=== PATIENT | female | born 1960 | race Two or more races ===

== ENCOUNTER 2024-10-28 12:06 | Inpatient (IN) | payer OTHER ==
[~2024-10-28] VITALS: Ht 165.1 cm; Wt 49.9 kg
[2024-10-28] MEDS ORDERED: HIERRO (12:30)
[2024-10-28] MEDS ORDERED: AMIPRIL (12:30)
--- NOTE | 2024-10-28 12:33 | NUR ---
PTE REFEIFE ANEMIA LA HEMOGLOBINA EN 7. SEMLELTOMA S/V Y SE UBICA EN ISOLACION POR CANCER DE COLON SE LE MYKE S/V Y SE UBICA EN CAMA.
[2024-10-28] MEDS ORDERED: 0.9 % SODIUM CHLORIDE 1,000 ML IV SCH (13:15)
--- NOTE | 2024-10-28 14:02 | NUR ---
SE EDUCA SOBRE [place] MEDICO, ESTA REFIERE ENTENDER. SE EXTRAEN MUESTRAS DE LABORATORIO Y SE ADMINISTRAN MEDICAMENTOS NIKKY ORDEN MEDICA. PENDIENTE U/A.
[2024-10-28 14:09] LABS: BASO % 0.2 % (0.1-1.2); EOS # 0.01 (0.04-0.54); EOS % 0.2 % (0.7-7.0); LYMPH # 1.04 (1.18-3.74); LYMPH % 24.6 % (19.3-53.1); MEAN PLATELET VOLUME 8.40 fl (9.4-12.4); MONO # 0.39 (0.24-0.82); MONO % 9.2 % (4.7-12.5); NEUT # 2.42 (1.56-6.13); NEUT % 57.3 % (34.0-71.1); RED CELL DISTRIBUTION WIDTH 17.6 % (11.6-14.4)
[2024-10-28 14:29] LABS: INR 1.05
[2024-10-28 14:37] LABS: ALT/SGPT 14.0 U/L (12-78); AST/SGOT 17.0 U/L (15-37); BILIRUBIN TOTAL 0.23 mg/dL (0.3-1.2); BUN CREA RATIO 11.0 (7.0-25.0); CREATININE SERUM 1.01 mg/dL (0.55-1.02); GFR 54.84; GLOBULINA 3.7 G/DL (2.4-3.5); GLUCOSE FASTING 108.0 mg/dL (65-100); OSMOLALITY SERUM 279.0 MOSM/KG (275-295)
[2024-10-28 14:43] LABS: COVID-19 AG NEGATIVE (NEGATIVE)
[2024-10-28 14:56] LABS: URINE APPEARANCE Cloudy; URINE BILIRRUBIN Negative (NEGATIVE); URINE BLOOD Negative; URINE COLOR Dark Yellow; URINE GLUCOSE Negative (NEGATIVE); URINE KETONE Negative (NEGATIVE); URINE LEUKOCYTE Moderate; URINE NITRATE Positive; URINE PROTEIN Negative (NEGATIVE); URINE UROBILINOGEN 0.2 E.U./dl
[2024-10-28 15:05] LABS: URINE EPITHELIAL CELLS 14.6 uL (0.0-38.8); URINE RBC 7.4 uL (0.0-20.8)
[2024-10-28 15:19] LABS: URINE BACTERIA > 9821.5 uL (0.0-1933); URINE CAST 0.58 uL (0.0-1.40)
[2024-10-28 15:23] LABS: NEUTROPHILS MAN 66.0 %
[2024-10-28 15:24] LABS: URINE MUCUS SCANT
[2024-10-28 15:24] LABS: EOSINOPHIL MAN 1.0 %; LYMPHOCYTE MAN 17.0 %; METAMYELOCYTE 2.0 %; MONOCYTE MAN 8.0 %; MYELOCYTE 5.0 %
[2024-10-28 15:25] LABS: TYPE CELLS SQUAMOUS
[2024-10-28 15:26] LABS: URINE CRYSTALS FEW /HPF; URINE WBC 1534.9 uL (0.0-23.2)
[2024-10-28] MEDS ORDERED: IRON FUM,PS/FOLIC/BCOMP,C NO.9 1 CAP CAPSULE PO SCH (16:19)
[2024-10-28 16:55] VITALS: BP 120/83
[2024-10-28 17:03] VITALS: BP 120/83; O2SAT 100
[2024-10-28] MEDS ORDERED: FAMOTIDINE/PF 20 MG/2 ML VIAL IV SCH (21:00)
[2024-10-29 02:43] VITALS: BP 93/63; O2SAT 94
[2024-10-29 08:46] VITALS: BP 137/71
[2024-10-29] MEDS ORDERED: CEFTRIAXONE SODIUM 2,000 MG in 0.9 % SODIUM CHLORIDE 100 ML IV NR (13:00)
[2024-10-29 19:27] LABS: BASO % 0.8 % (0.1-1.2); EOS # 0.03 (0.04-0.54); EOS % 0.5 % (0.7-7.0); LYMPH # 1.03 (1.18-3.74); LYMPH % 16.3 % (19.3-53.1); MEAN PLATELET VOLUME 8.30 fl (9.4-12.4); MONO # 0.58 (0.24-0.82); MONO % 9.2 % (4.7-12.5); NEUT # 4.06 (1.56-6.13); NEUT % 64.3 % (34.0-71.1); RED CELL DISTRIBUTION WIDTH 18.5 % (11.6-14.4)
[2024-10-29 19:42] LABS: BAND MAN 3.0 %; BASOPHIL MAN 2.0 %; LYMPHOCYTE MAN 14.0 %; METAMYELOCYTE 2.0 %; MONOCYTE MAN 4.0 %; MYELOCYTE 6.0 %; NEUTROPHILS MAN 69.0 %
[2024-10-29 21:05] VITALS: BP 129/72
[2024-10-30 03:00] VITALS: BP 107/71; O2SAT 100
[2024-10-30 05:05] LABS: BASO % 1.1 % (0.1-1.2); EOS # 0.05 (0.04-0.54); EOS % 0.9 % (0.7-7.0); LYMPH # 1.30 (1.18-3.74); LYMPH % 23.6 % (19.3-53.1); MEAN PLATELET VOLUME 9.10 fl (9.4-12.4); MONO # 0.71 (0.24-0.82); NEUT # 2.95 (1.56-6.13); NEUT % 53.5 % (34.0-71.1); RED CELL DISTRIBUTION WIDTH 18.6 % (11.6-14.4)
[2024-10-30 05:37] LABS: BAND MAN 3.0 %; EOSINOPHIL MAN 2.0 %; LYMPHOCYTE MAN 33.0 %; MONO % 12.9 % (4.7-12.5); MONOCYTE MAN 5.0 %; NEUTROPHILS MAN 56.0 %
[2024-10-30 06:01] LABS: ALT/SGPT 12.0 U/L (12-78); AST/SGOT 19.0 U/L (15-37); BILIRUBIN TOTAL 0.38 mg/dL (0.3-1.2); BUN CREA RATIO 7.0 (7.0-25.0); CREATININE SERUM 1.24 mg/dL (0.55-1.02); GFR 43.28; GLOBULINA 3.3 G/DL (2.4-3.5); GLUCOSE FASTING 96.0 mg/dL (65-100); OSMOLALITY SERUM 291.0 MOSM/KG (275-295)
[2024-10-30 08:55] VITALS: BP 133/88; O2SAT 100
[2024-10-30] MEDS ORDERED: CEFTRIAXONE SODIUM 2,000 MG in 0.9 % SODIUM CHLORIDE 100 ML IV SCH (09:00)
[2024-10-30] MEDS ORDERED: CEFDINIR300 MG PO (15:44)
[2024-10-30] MEDS ORDERED: INTESTINEX680 M1 PO (15:45)
== END 2024-10-30 16:34 | disposition home or self-care (01) | DRG 375 ==
LOC: ER 12:06 → MEDI 17:36 → SEC-K 17:36 → MEDI 20:56
PROVIDERS: Emergency Medicine; ADMIT Internal Medicine; ATTEND Internal Medicine
PROC: 30233N1 Transfusion of Nonautologous Red Blood Cells into Peripheral Vein, Percutaneous Approach (ICD-10-PCS; principal; 2024-10-28)
DX: C21.0 Malignant neoplasm of anus, unspecified (principal); C78.00 Secondary malignant neoplasm of unspecified lung; C78.7 Secondary malignant neoplasm of liver and intrahepatic bile duct; N39.0 Urinary tract infection, site not specified; D64.89 Other specified anemias; D75.839 Thrombocytosis, unspecified; Z92.21 Personal history of antineoplastic chemotherapy; Z88.2 Allergy status to sulfonamides; B96.20 Unspecified Escherichia coli [E. coli] as the cause of diseases classified elsewhere

== ENCOUNTER 2024-12-30 15:46 | Inpatient (IN) | payer OTHER ==
[~2024-12-30] VITALS: Ht 167.6 cm; Wt 49.0 kg
[~2024-12-30 15:46] MED LIST: AMIPRIL; CEFDINIR300 MG PO; HIERRO; INTESTINEX680 M1 PO
--- NOTE | 2024-12-30 16:07 | NUR ---
PACIENTE ALERTA Y ORIENTADA X3 LA MISMA REFIERE HEMOGLOBINA 7.4 POR LABORATORIO PACIENTE DE CANCEL DEL COLON ACTIVO. S/V ESTABLE DENTRO DE RODRIGUEZ CONDICION. PACIENTE EN ESPERA DE EVALUACION MEDICA.
[2024-12-30 17:37] LABS: BASO % 0.2 % (0.1-1.2); EOS # 0.01 (0.04-0.54); EOS % 0.2 % (0.7-7.0); LYMPH # 1.18 (1.18-3.74); LYMPH % 21.7 % (19.3-53.1); MEAN PLATELET VOLUME 9.70 fl (9.4-12.4); MONO # 0.26 (0.24-0.82); MONO % 4.8 % (4.7-12.5); NEUT # 3.97 (1.56-6.13); NEUT % 72.7 % (34.0-71.1); RED CELL DISTRIBUTION WIDTH 17.7 % (11.6-14.4)
--- NOTE | 2024-12-30 17:55 | NUR ---
SE EDUCA A PACIENTE SOBRE TRATAMIENTO MEDICO EL CUAL REFIERE ENTENDER, SE REALIZA MYKE DE MUESTRAS NIKKY ORDEN MEDICA Y SE MANTIENE BAJO OBSERVACION.
[2024-12-30 17:57] LABS: INR 1.00
[2024-12-30 18:35] LABS: BUN CREA RATIO 13.0 (7.0-25.0); CREATININE SERUM 1.08 mg/dL (0.55-1.02); GFR 50.76; GLUCOSE FASTING 111.0 mg/dL (65-100); OSMOLALITY SERUM 273.0 MOSM/KG (275-295); TSH 2.39 uIU/mL (0.358-3.74)
[2024-12-30 18:40] VITALS: BP 90/60
[2024-12-30 18:49] LABS: URINE APPEARANCE Cloudy; URINE BILIRRUBIN Negative (NEGATIVE); URINE BLOOD Negative; URINE COLOR Dark Yellow; URINE GLUCOSE Negative (NEGATIVE); URINE KETONE Trace (NEGATIVE); URINE LEUKOCYTE Small; URINE NITRATE Negative; URINE PROTEIN 30 (NEGATIVE); URINE UROBILINOGEN 0.2 E.U./dl
[2024-12-30 18:53] LABS: URINE BACTERIA 3034.5 uL (0.0-1933); URINE CAST 4.69 uL (0.0-1.40); URINE EPITHELIAL CELLS 37.3 uL (0.0-38.8); URINE RBC 8.0 uL (0.0-20.8); URINE WBC 505.6 uL (0.0-23.2)
[2024-12-30] MEDS ORDERED: 0.9 % SODIUM CHLORIDE 1,000 ML IV SCH (19:00)
[2024-12-30 19:08] LABS: TYPE CELLS RENAL TUBULAR; URINE CRYSTALS FEW /HPF
[2024-12-30] MEDS ORDERED: ENALAPRILAT DIHYDRATE 1.25 MG/ML VIAL IV PRN (19:15)
[2024-12-30] MEDS ORDERED: ACETAMINOPHEN 500 MG GEL..CAP PO PRN (19:15)
[2024-12-30] MEDS ORDERED: ONDANSETRON HCL 4 MG in 0.9 % SODIUM CHLORIDE 50 ML IV PRN (19:15)
[2024-12-30 22:50] VITALS: BP 108/77
[2024-12-31 02:11] VITALS: BP 88/60; O2SAT 95
[2024-12-31] MEDS ORDERED: PANTOPRAZOLE SODIUM 40 MG/VIAL VIAL IV SCH (09:00)
[2024-12-31] MEDS ORDERED: IRON FUM,PS/FOLIC/BCOMP,C NO.9 1 CAP CAPSULE PO SCH (09:00)
[2024-12-31 09:28] VITALS: BP 90/60; O2SAT 97
[2024-12-31 19:42] VITALS: BP 110/71; O2SAT 100
[2025-01-01 03:00] VITALS: BP 106/64; O2SAT 99
[2025-01-01 09:26] VITALS: BP 90/60; O2SAT 97
[2025-01-01 14:23] LABS: ALT/SGPT 16.0 U/L (12-78); AST/SGOT 28.0 U/L (15-37); BILIRUBIN TOTAL 1.64 mg/dL (0.3-1.2); BUN CREA RATIO 12.0 (7.0-25.0); CREATININE SERUM 0.95 mg/dL (0.55-1.02); GFR 58.85; GLOBULINA 3.4 G/DL (2.4-3.5); GLUCOSE FASTING 95.0 mg/dL (65-100); OSMOLALITY SERUM 280.0 MOSM/KG (275-295)
[2025-01-01 17:46] VITALS: BP 102/70; O2SAT 98
[2025-01-01 23:16] LABS: BASO % 0.2 % (0.1-1.2); EOS # 0.03 (0.04-0.54); EOS % 0.5 % (0.7-7.0); LYMPH # 1.61 (1.18-3.74); LYMPH % 29.2 % (19.3-53.1); MEAN PLATELET VOLUME 9.50 fl (9.4-12.4); MONO # 0.62 (0.24-0.82); MONO % 11.2 % (4.7-12.5); NEUT # 3.21 (1.56-6.13); NEUT % 58.2 % (34.0-71.1); RED CELL DISTRIBUTION WIDTH 19.4 % (11.6-14.4)
[2025-01-02 01:31] VITALS: BP 108/72; O2SAT 99
[2025-01-02 09:17] VITALS: BP 101/58; O2SAT 100
[2025-01-02 18:53] VITALS: BP 95/63; O2SAT 99
[2025-01-03 03:52] VITALS: BP 99/63; O2SAT 97
[2025-01-03 10:16] VITALS: BP 90/50; O2SAT 98
[2025-01-03 17:56] VITALS: BP 104/73; O2SAT 97
[2025-01-04 03:47] VITALS: BP 95/65; O2SAT 100
[2025-01-04 07:03] LABS: BASO % 0.3 % (0.1-1.2); EOS # 0.06 (0.04-0.54); EOS % 1.6 % (0.7-7.0); LYMPH # 0.98 (1.18-3.74); LYMPH % 25.5 % (19.3-53.1); MEAN PLATELET VOLUME 9.50 fl (9.4-12.4); MONO # 0.46 (0.24-0.82); MONO % 12.0 % (4.7-12.5); NEUT # 2.30 (1.56-6.13); NEUT % 59.8 % (34.0-71.1); RED CELL DISTRIBUTION WIDTH 18.3 % (11.6-14.4)
[2025-01-04 08:03] LABS: ALT/SGPT 13.0 U/L (12-78); AST/SGOT 30.0 U/L (15-37); BILIRUBIN TOTAL 0.32 mg/dL (0.3-1.2); BUN CREA RATIO 10.0 (7.0-25.0); CREATININE SERUM 0.79 mg/dL (0.55-1.02); GFR 72.81; GLOBULINA 2.9 G/DL (2.4-3.5); GLUCOSE FASTING 82.0 mg/dL (65-100); OSMOLALITY SERUM 277.0 MOSM/KG (275-295)
[2025-01-04 08:18] LABS: BAND MAN 7.0 %; EOSINOPHIL MAN 1.0 %; LYMPHOCYTE MAN 33.0 %; MONOCYTE MAN 9.0 %; NEUTROPHILS MAN 49.0 %
[2025-01-04 09:50] VITALS: BP 92/65; O2SAT 99
[2025-01-04] MEDS ORDERED: MAGNESIUM SULFATE IN WATER 50 ML IV NR (16:00)
[2025-01-04 17:46] VITALS: BP 88/55
[2025-01-05 03:16] VITALS: BP 87/55; O2SAT 98
[2025-01-05 08:41] VITALS: BP 94/67; O2SAT 97
[2025-01-05 09:45] LABS: ob POSITIVE (NEGATIVE)
[2025-01-05 18:57] VITALS: BP 120/80; O2SAT 100
[2025-01-06 01:27] VITALS: BP 100/66; O2SAT 99
[2025-01-06 08:44] LABS: BASO % 0.9 % (0.1-1.2); EOS # 0.08 (0.04-0.54); EOS % 1.5 % (0.7-7.0); LYMPH # 1.00 (1.18-3.74); LYMPH % 18.9 % (19.3-53.1); MEAN PLATELET VOLUME 10.10 fl (9.4-12.4); MONO # 0.50 (0.24-0.82); MONO % 9.4 % (4.7-12.5); NEUT # 3.62 (1.56-6.13); NEUT % 68.4 % (34.0-71.1); RED CELL DISTRIBUTION WIDTH 18.0 % (11.6-14.4)
[2025-01-06 09:09] VITALS: BP 114/71; O2SAT 96
== END 2025-01-06 12:41 | disposition home or self-care (01) | DRG 812 ==
LOC: ER 15:47 → MEDJ 19:16
PROVIDERS: General Practice; Internal Medicine; ADMIT Internal Medicine; ATTEND Internal Medicine
PROC: 30233N1 Transfusion of Nonautologous Red Blood Cells into Peripheral Vein, Percutaneous Approach (ICD-10-PCS; principal; 2024-12-31)
DX: D64.89 Other specified anemias (principal); C21.0 Malignant neoplasm of anus, unspecified; C78.00 Secondary malignant neoplasm of unspecified lung; C78.7 Secondary malignant neoplasm of liver and intrahepatic bile duct; D63.0 Anemia in neoplastic disease